=== PATIENT | male | born 1980 | race Caucasian/White ===

== ENCOUNTER 2016-10-23 11:18 | Emergency (ER) | payer MEDICAID, OTHER ==
--- NOTE | 2016-10-23 13:25 | REP ---
Left forearm: Two views. History: Swelling of the distal radius. Findings: AP and lateral views of the left forearm show normal bones and joints. No fracture or subluxation is seen. There is some soft tissue swelling in the distal forearm. Impression: No fracture or other acute abnormality. Unreviewed
--- NOTE | 2016-10-23 13:54 | EDDOCDS ---
Physician Documentation [facility] Name: Rudi Carroll Age: 36 yrs Sex: Male : 1980 Arrival Date: 10/23/2016 Time: 11:18 Bed TR8 Private MD: Sarbjit Araiza Disposition: 10/23/16 13:36 Discharged to Home/Self Care. Impression: Strain of other flexor muscle, fascia and tendon at forearm level, left arm. - Condition is Stable. - Discharge Instructions: Elastic Bandage and RICE, Muscle Strain. - Prescriptions for Naprosyn 500 mg Oral Tablet - take 1 tablet by ORAL route 2 times per day take with food; 30 tablet. - Medication Reconciliation, Local Pharmacy Hours form. - Follow up: Sarbjit Araiza DO; When: Call to arrange an appointment; Reason: Recheck today's complaints. - Problem is new. - Symptoms are unchanged. Historical: - Allergies: Bee stings; - Home Meds: 1. none - PMHx: none; - PSHx: Left great toe surgery; - Social history: Smoking status: Patient uses tobacco products, current every day smoker. No barriers to communication noted, The patient speaks fluent Beninese. - Family history: No immediate family members are acutely ill. - : The pt / caregiver states he / she is not on anticoagulants. Home medication list is obtained from the patient. - Exposure Risk Screening:: None identified. Vital Signs: 10/23 11:20 BP 153 / 82; Pulse 72; Resp 18; Temp 97.2(O); Pulse Ox 99% on R/A; Weight 65.77 kg / ct3 145 lbs (R); Height 5 ft. 10 in. (177.80 cm) (R); Pain 8/10; 13:38 BP 125 / 68; Pulse 58; Resp 18; Temp 99.2(TE); Pulse Ox 99% on R/A; Pain 0/10; mdr 11:20 Body Mass Index 20.81 (65.77 kg, 177.80 cm) ct3 MDM: 12:33 Financial registration complete. lg 12:39 Forearm (radius/ulna) Ordered. EDMS 13:30 Saurav Wrap ordered. ar2 Signatures: Dispatcher [employer] Deejay Cole RN RN Cecily Mensah, Reg Reg lg Armin Roblero PA-C PA-C ar2 Inder Sorto,RN RN mb9 MTDD
--- NOTE | 2016-10-23 13:54 | EDDOCDS ---
Nurse's Notes [facility] Name: Rudi Carroll Age: 36 yrs Sex: Male : 1980 Arrival Date: 10/23/2016 Time: 11:18 Bed TR8 Private MD: Sarbjit Araiza Diagnosis: Strain of other flexor muscle, fascia and tendon at forearm level, left arm Presentation: 10/23 11:31 Presenting complaint: Patient states: Left wrist pain and swelling since ''throwing dwg hay'' one week ago. Adult Sepsis Screening: The patient does not have new or worsening altered mentation. Patient's respiratory rate is less than 22. Systolic blood pressure is greater than 100. Patient has a qSOFA score of 0- Negative Sepsis Screen. Suicide/Homicide risk assessment- the patient denies having any suicidal and/or homicidal ideations and does not present with any other emotional, behavioral or mental health complaints. Status: Patient is not a building service worker or dependent. Transition of care: patient was not received from another setting of care. 11:31 Acuity: STEPAN Level 5 dwg 11:31 Method Of Arrival: Walkin/Carried/Asstd dwg Triage Assessment: 11:33 General: Appears in no apparent distress. Pain: Pain currently is 3 out of 10 on a pain dwg scale. Pt Declines HIV testing. Historical: - Allergies: Bee stings; - Home Meds: 1. none - PMHx: none; - PSHx: Left great toe surgery; - Social history: Smoking status: Patient uses tobacco products, current every day smoker. No barriers to communication noted, The patient speaks fluent Chinese. - Family history: No immediate family members are acutely ill. - : The pt / caregiver states he / she is not on anticoagulants. Home medication list is obtained from the patient. - Exposure Risk Screening:: None identified. Screenin:50 Screening information is obtained from the patient. Fall risk: No risks identified. mb9 Assistance ADL's: requires no assistance with activities of daily living. Abuse/DV Screen: The patient / caregiver reports he/she is: not in a situation that causes fear, pain or injury. Nutritional screening: No deficits noted. Advance Directives: There is no active DNR order. home support is adequate. Assessment: 13:50 General: Appears in no apparent distress, Behavior is appropriate for age, cooperative. mb9 Respiratory: Airway is patent Respiratory effort is even, unlabored. Musculoskeletal: Circulation, motion, and sensation intact. Vital Signs: 11:20 BP 153 / 82; Pulse 72; Resp 18; Temp 97.2(O); Pulse Ox 99% on R/A; Weight 65.77 kg (R); ct3 Height 5 ft. 10 in. (177.80 cm) (R); Pain 8/10; 13:38 BP 125 / 68; Pulse 58; Resp 18; Temp 99.2(TE); Pulse Ox 99% on R/A; Pain 0/10; mdr 11:20 Body Mass Index 20.81 (65.77 kg, 177.80 cm) ct3 Vitals: 11:20 Log In Time: October 23, 2016 at 11:18. ct3 ED Course: 11:19 Patient visited by Cindy Porras PCA. ct3 11:19 Sarbjit Araiza DO is Private Physician. ct3 11:19 Patient moved to Waiting ct3 11:21 Patient moved to Pre RCE ct3 11:32 Triage Initiated dwg 12:14 Patient moved to Triage 3 srm 12:24 Armin Roblero PA-C is PHCP. ar2 12:24 Haroon Quezada MD is Attending Physician. ar2 12:24 Patient visited by Armin Roblero PA-C. ar2 12:45 Patient moved to TR1 mb9 13:32 Patient moved to PR1 / 25 mb9 13:35 Sarbjit Araiza DO is Referral Physician. ar2 13:42 Patient visited by Ethan Reynaga PCA. mdr 13:50 Patient moved to TR8 mb9 13:50 The patient / caregiver is instructed regarding the plan of care and ED course. mb9 13:50 No IV's were initiated during this patient's visit. No procedures done that require mb9 assistance. Order Results: There are currently no results for this order. Outcome: 13:36 Discharge ordered by Provider. ar2 13:50 Discharge Assessment: Patient awake, alert and oriented x 3. No cognitive and/or mb9 functional deficits noted. Patient verbalized understanding of disposition instructions. patient administered narcotics - no. The following High Risk Discharge criteria are identified: None. Discharged to home ambulatory. Condition: good Condition: stable Condition: improved. Discharge instructions given to patient, Instructed on discharge instructions, follow up and referral plans. medication usage, Demonstrated understanding of instructions, medications, Pt was receptive of discharge instructions/ teaching. Prescriptions given X 1. No special radiology studies were completed. Property :Personal belongings accompany Pt. 13:54 Patient left the ED. mb9 Signatures: Deejay Vega, RN Cindi Reyes RN RN srm Robertshaw, Aaron PA-Chacha PA-Chacha ar2 Cindy Porras, SIMULATION ENGINEER SIMULATION ENGINEER ct3 Inder SortoRN RN mb9 Ethan Reynaga, SIMULATION ENGINEER SIMULATION ENGINEER mdr MTDD
--- NOTE | 2016-10-25 14:54 | EDDOCDS ---
Nurse's Notes [facility] Name: Rudi Carroll Age: 36 yrs Sex: Male : 1980 Arrival Date: 10/23/2016 Time: 11:18 Bed TR8 Private MD: Sarbjit Araiza Diagnosis: Strain of other flexor muscle, fascia and tendon at forearm level, left arm Presentation: 10/23 11:31 Presenting complaint: Patient states: Left wrist pain and swelling since ''throwing dwg hay'' one week ago. Adult Sepsis Screening: The patient does not have new or worsening altered mentation. Patient's respiratory rate is less than 22. Systolic blood pressure is greater than 100. Patient has a qSOFA score of 0- Negative Sepsis Screen. Suicide/Homicide risk assessment- the patient denies having any suicidal and/or homicidal ideations and does not present with any other emotional, behavioral or mental health complaints. Status: Patient is not a service worker helper or dependent. Transition of care: patient was not received from another setting of care. 11:31 Acuity: STEPAN Level 5 dwg 11:31 Method Of Arrival: Walkin/Carried/Asstd dwg Triage Assessment: 11:33 General: Appears in no apparent distress. Pain: Pain currently is 3 out of 10 on a pain dwg scale. Pt Declines HIV testing. Historical: - Allergies: Bee stings; - Home Meds: 1. none - PMHx: none; - PSHx: Left great toe surgery; - Social history: Smoking status: Patient uses tobacco products, current every day smoker. No barriers to communication noted, The patient speaks fluent Danish. - Family history: No immediate family members are acutely ill. - : The pt / caregiver states he / she is not on anticoagulants. Home medication list is obtained from the patient. - Exposure Risk Screening:: None identified. Screenin:50 Screening information is obtained from the patient. Fall risk: No risks identified. mb9 Assistance ADL's: requires no assistance with activities of daily living. Abuse/DV Screen: The patient / caregiver reports he/she is: not in a situation that causes fear, pain or injury. Nutritional screening: No deficits noted. Advance Directives: There is no active DNR order. home support is adequate. Assessment: 13:50 General: Appears in no apparent distress, Behavior is appropriate for age, cooperative. mb9 Respiratory: Airway is patent Respiratory effort is even, unlabored. Musculoskeletal: Circulation, motion, and sensation intact. Vital Signs: 11:20 BP 153 / 82; Pulse 72; Resp 18; Temp 97.2(O); Pulse Ox 99% on R/A; Weight 65.77 kg (R); ct3 Height 5 ft. 10 in. (177.80 cm) (R); Pain 8/10; 13:38 BP 125 / 68; Pulse 58; Resp 18; Temp 99.2(TE); Pulse Ox 99% on R/A; Pain 0/10; mdr 11:20 Body Mass Index 20.81 (65.77 kg, 177.80 cm) ct3 Vitals: 11:20 Log In Time: October 23, 2016 at 11:18. ct3 ED Course: 11:19 Patient visited by Cindy Porras PCA. ct3 11:19 Sarbjit Araiza DO is Private Physician. ct3 11:19 Patient moved to Waiting ct3 11:21 Patient moved to Pre RCE ct3 11:32 Triage Initiated dwg 12:14 Patient moved to Triage 3 srm 12:24 Armin Roblero PA-C is PHCP. ar2 12:24 Haroon Quezada MD is Attending Physician. ar2 12:24 Patient visited by Armin Roblero PA-C. ar2 12:45 Patient moved to TR1 mb9 13:32 Patient moved to PR1 / 25 mb9 13:35 Sarbjit Araiza DO is Referral Physician. ar2 13:42 Patient visited by Ethan Reynaga PCA. mdr 13:50 Patient moved to TR8 mb9 13:50 The patient / caregiver is instructed regarding the plan of care and ED course. mb9 13:50 No IV's were initiated during this patient's visit. No procedures done that require mb9 assistance. 14:04 Forearm (radius/ulna) Returned. EDMS 14:51 Patient name changed from Rudi\S\W\S\Carroll\S\ to Rudi\S\Jyaden\S\Carroll. EDMS 10/24 11:33 T-Sheet-- Draft Copy was scanned into [employer] and attached to record. gb Order Results: Radiology Order: Forearm (radius/ulna) Test: Forearm (radius/ulna) REASON FOR EXAMINATION: trauma, swelling distal radial aspect; Left forearm: Two views.; ; History: Swelling of the distal radius.; ; Findings: AP and lateral views of the left forearm show normal bones and joints.; No fracture or subluxation is seen. There is some soft tissue swelling in the; distal forearm.; ; Impression:; ; No fracture or other acute abnormality.; ; ; ; ; Unreviewed; Outcome: 10/23 13:36 Discharge ordered by Provider. ar2 13:50 Discharge Assessment: Patient awake, alert and oriented x 3. No cognitive and/or mb9 functional deficits noted. Patient verbalized understanding of disposition instructions. patient administered narcotics - no. The following High Risk Discharge criteria are identified: None. Discharged to home ambulatory. Condition: good Condition: stable Condition: improved. Discharge instructions given to patient, Instructed on discharge instructions, follow up and referral plans. medication usage, Demonstrated understanding of instructions, medications, Pt was receptive of discharge instructions/ teaching. Prescriptions given X 1. No special radiology studies were completed. Property :Personal belongings accompany Pt. 13:54 Patient left the ED. mb9 Signatures: Dispatcher [employer] EDMS Deejay Vega RN RN Cindi Romero RN RN [facility] Rea Mcdonald, Víctor Reg Armin Wu PA-C PA-C ar2 Cindy Porras, LINING VAMPER LINING VAMPER ct3 Inder SortoRN RN mb9 Ethan Reynaga, LINING VAMPER LINING VAMPER mdr Chart Complete MTDD
--- NOTE | 2016-10-25 14:54 | EDDOCDS ---
Physician Documentation [facility] Name: Rudi Carroll Age: 36 yrs Sex: Male : 1980 Arrival Date: 10/23/2016 Time: 11:18 Bed TR8 Private MD: Sarbjit Araiza Disposition: 10/23/16 13:36 Discharged to Home/Self Care. Impression: Strain of other flexor muscle, fascia and tendon at forearm level, left arm. - Condition is Stable. - Discharge Instructions: Elastic Bandage and RICE, Muscle Strain. - Prescriptions for Naprosyn 500 mg Oral Tablet - take 1 tablet by ORAL route 2 times per day take with food; 30 tablet. - Medication Reconciliation, Local Pharmacy Hours form. - Follow up: Sarbjit Araiza DO; When: Call to arrange an appointment; Reason: Recheck today's complaints. - Problem is new. - Symptoms are unchanged. Historical: - Allergies: Bee stings; - Home Meds: 1. none - PMHx: none; - PSHx: Left great toe surgery; - Social history: Smoking status: Patient uses tobacco products, current every day smoker. No barriers to communication noted, The patient speaks fluent [place] Islander. - Family history: No immediate family members are acutely ill. - : The pt / caregiver states he / she is not on anticoagulants. Home medication list is obtained from the patient. - Exposure Risk Screening:: None identified. Vital Signs: 10/23 11:20 BP 153 / 82; Pulse 72; Resp 18; Temp 97.2(O); Pulse Ox 99% on R/A; Weight 65.77 kg / ct3 145 lbs (R); Height 5 ft. 10 in. (177.80 cm) (R); Pain 8/10; 13:38 BP 125 / 68; Pulse 58; Resp 18; Temp 99.2(TE); Pulse Ox 99% on R/A; Pain 0/10; mdr 11:20 Body Mass Index 20.81 (65.77 kg, 177.80 cm) ct3 MDM: 12:33 Financial registration complete. lg 12:39 Forearm (radius/ulna) Ordered. EDMS 13:30 Saurav Wrap ordered. ar2 10/24 11:33 T-Sheet-- Draft Copy was scanned into [employer] and attached to record. gb Signatures: Dispatcher [employer] Deejay Cole, RN RN dwg Rea Mcdonald, Reg Reg gb Cecily Cortez, Reg Reg lg Armin Roblero, ELLA JARAMILLO ar2 Inder Sorto,RN RN mb9 The chart was reviewed and I authenticate all verbal orders and agree with the evaluation and treatment provided.Attachments: 11:33 T-Sheet-- Draft Copy gb Chart Complete MTDD
--- NOTE | 2016-10-25 14:54 | EDDOCDS ---
Physician Documentation [facility] Name: Rudi Carroll Age: 36 yrs Sex: Male : 1980 Arrival Date: 10/23/2016 Time: 11:18 Bed TR8 Private MD: Sarbjit Araiza Disposition: 10/23/16 13:36 Discharged to Home/Self Care. Impression: Strain of other flexor muscle, fascia and tendon at forearm level, left arm. - Condition is Stable. - Discharge Instructions: Elastic Bandage and RICE, Muscle Strain. - Prescriptions for Naprosyn 500 mg Oral Tablet - take 1 tablet by ORAL route 2 times per day take with food; 30 tablet. - Medication Reconciliation, Local Pharmacy Hours form. - Follow up: Sarbjit Araiza DO; When: Call to arrange an appointment; Reason: Recheck today's complaints. - Problem is new. - Symptoms are unchanged. Historical: - Allergies: Bee stings; - Home Meds: 1. none - PMHx: none; - PSHx: Left great toe surgery; - Social history: Smoking status: Patient uses tobacco products, current every day smoker. No barriers to communication noted, The patient speaks fluent Kyrgyz. - Family history: No immediate family members are acutely ill. - : The pt / caregiver states he / she is not on anticoagulants. Home medication list is obtained from the patient. - Exposure Risk Screening:: None identified. Vital Signs: 10/23 11:20 BP 153 / 82; Pulse 72; Resp 18; Temp 97.2(O); Pulse Ox 99% on R/A; Weight 65.77 kg / ct3 145 lbs (R); Height 5 ft. 10 in. (177.80 cm) (R); Pain 8/10; 13:38 BP 125 / 68; Pulse 58; Resp 18; Temp 99.2(TE); Pulse Ox 99% on R/A; Pain 0/10; mdr 11:20 Body Mass Index 20.81 (65.77 kg, 177.80 cm) ct3 MDM: 12:33 Financial registration complete. lg 12:39 Forearm (radius/ulna) Ordered. EDMS 13:30 Saurav Wrap ordered. ar2 10/24 11:33 T-Sheet-- Draft Copy was scanned into [employer] and attached to record. gb Signatures: Dispatcher [employer] Deejay Cole, RN RN dwg Rea Mcdonald, Reg Reg gb Cecily Cortez, Reg Reg lg Armin Roblero, ELLA JARAMILLO ar2 Inder Sorto,RN RN mb9 The chart was reviewed and I authenticate all verbal orders and agree with the evaluation and treatment provided.Attachments: 11:33 T-Sheet-- Draft Copy gb Chart Complete MTDD
--- NOTE | 2016-10-26 12:13 | EDDOCDS ---
Nurse's Notes [facility] Name: Rudi Carroll Age: 36 yrs Sex: Male : 1980 Arrival Date: 10/23/2016 Time: 11:18 Bed TR8 Private MD: Sarbjit Araiza Diagnosis: Strain of other flexor muscle, fascia and tendon at forearm level, left arm Presentation: 10/23 11:31 Presenting complaint: Patient states: Left wrist pain and swelling since ''throwing dwg hay'' one week ago. Adult Sepsis Screening: The patient does not have new or worsening altered mentation. Patient's respiratory rate is less than 22. Systolic blood pressure is greater than 100. Patient has a qSOFA score of 0- Negative Sepsis Screen. Suicide/Homicide risk assessment- the patient denies having any suicidal and/or homicidal ideations and does not present with any other emotional, behavioral or mental health complaints. Status: Patient is not a director construction services or dependent. Transition of care: patient was not received from another setting of care. 11:31 Acuity: STEPAN Level 5 dwg 11:31 Method Of Arrival: Walkin/Carried/Asstd dwg Triage Assessment: 11:33 General: Appears in no apparent distress. Pain: Pain currently is 3 out of 10 on a pain dwg scale. Pt Declines HIV testing. Historical: - Allergies: Bee stings; - Home Meds: 1. none - PMHx: none; - PSHx: Left great toe surgery; - Social history: Smoking status: Patient uses tobacco products, current every day smoker. No barriers to communication noted, The patient speaks fluent Sami. - Family history: No immediate family members are acutely ill. - : The pt / caregiver states he / she is not on anticoagulants. Home medication list is obtained from the patient. - Exposure Risk Screening:: None identified. Screenin:50 Screening information is obtained from the patient. Fall risk: No risks identified. mb9 Assistance ADL's: requires no assistance with activities of daily living. Abuse/DV Screen: The patient / caregiver reports he/she is: not in a situation that causes fear, pain or injury. Nutritional screening: No deficits noted. Advance Directives: There is no active DNR order. home support is adequate. Assessment: 13:50 General: Appears in no apparent distress, Behavior is appropriate for age, cooperative. mb9 Respiratory: Airway is patent Respiratory effort is even, unlabored. Musculoskeletal: Circulation, motion, and sensation intact. Vital Signs: 11:20 BP 153 / 82; Pulse 72; Resp 18; Temp 97.2(O); Pulse Ox 99% on R/A; Weight 65.77 kg (R); ct3 Height 5 ft. 10 in. (177.80 cm) (R); Pain 8/10; 13:38 BP 125 / 68; Pulse 58; Resp 18; Temp 99.2(TE); Pulse Ox 99% on R/A; Pain 0/10; mdr 11:20 Body Mass Index 20.81 (65.77 kg, 177.80 cm) ct3 Vitals: 11:20 Log In Time: October 23, 2016 at 11:18. ct3 ED Course: 11:19 Patient visited by Cindy Porras PCA. ct3 11:19 Sarbjit Araiza DO is Private Physician. ct3 11:19 Patient moved to Waiting ct3 11:21 Patient moved to Pre RCE ct3 11:32 Triage Initiated dwg 12:14 Patient moved to Triage 3 srm 12:24 Armin Roblero PA-C is PHCP. ar2 12:24 Haroon Quezada MD is Attending Physician. ar2 12:24 Patient visited by Armin Roblero PA-C. ar2 12:45 Patient moved to TR1 mb9 13:32 Patient moved to PR1 / 25 mb9 13:35 Sarbjit Araiza DO is Referral Physician. ar2 13:42 Patient visited by Ethan Reynaga PCA. mdr 13:50 Patient moved to TR8 mb9 13:50 The patient / caregiver is instructed regarding the plan of care and ED course. mb9 13:50 No IV's were initiated during this patient's visit. No procedures done that require mb9 assistance. 14:04 Forearm (radius/ulna) Returned. EDMS 14:51 Patient name changed from Rudi\S\W\S\Carroll\S\ to Rudi\S\Jayden\S\Carroll. EDMS 10/24 11:33 T-Sheet-- Draft Copy was scanned into [employer] and attached to record. gb Order Results: Radiology Order: Forearm (radius/ulna) Test: Forearm (radius/ulna) REASON FOR EXAMINATION: trauma, swelling distal radial aspect; Left forearm: Two views.; ; History: Swelling of the distal radius.; ; Findings: AP and lateral views of the left forearm show normal bones and joints.; No fracture or subluxation is seen. There is some soft tissue swelling in the; distal forearm.; ; Impression:; ; No fracture or other acute abnormality.; ; ; ; ; Unreviewed; Outcome: 10/23 13:36 Discharge ordered by Provider. ar2 13:50 Discharge Assessment: Patient awake, alert and oriented x 3. No cognitive and/or mb9 functional deficits noted. Patient verbalized understanding of disposition instructions. patient administered narcotics - no. The following High Risk Discharge criteria are identified: None. Discharged to home ambulatory. Condition: good Condition: stable Condition: improved. Discharge instructions given to patient, Instructed on discharge instructions, follow up and referral plans. medication usage, Demonstrated understanding of instructions, medications, Pt was receptive of discharge instructions/ teaching. Prescriptions given X 1. No special radiology studies were completed. Property :Personal belongings accompany Pt. 13:54 Patient left the ED. mb9 Signatures: Dispatcher [employer] EDMS Deejay Vega RN RN iCndi Romero RN RN [facility] Rea Mcdonald, Víctor Reg Armin Wu PA-C PA-C ar2 Cindy Porras, UNDERGROUND ROOF BOLTER UNDERGROUND ROOF BOLTER ct3 Inder SortoRN RN mb9 Ethan Reynaga, UNDERGROUND ROOF BOLTER UNDERGROUND ROOF BOLTER mdr Chart Complete MTDD
--- NOTE | 2016-10-26 12:13 | EDDOCDS ---
Physician Documentation [facility] Name: Rudi Carroll Age: 36 yrs Sex: Male : 1980 Arrival Date: 10/23/2016 Time: 11:18 Bed TR8 Private MD: Sarbjit Araiza Disposition: 10/23/16 13:36 Discharged to Home/Self Care. Impression: Strain of other flexor muscle, fascia and tendon at forearm level, left arm. - Condition is Stable. - Discharge Instructions: Elastic Bandage and RICE, Muscle Strain. - Prescriptions for Naprosyn 500 mg Oral Tablet - take 1 tablet by ORAL route 2 times per day take with food; 30 tablet. - Medication Reconciliation, Local Pharmacy Hours form. - Follow up: Sarbjit Araiza DO; When: Call to arrange an appointment; Reason: Recheck today's complaints. - Problem is new. - Symptoms are unchanged. Historical: - Allergies: Bee stings; - Home Meds: 1. none - PMHx: none; - PSHx: Left great toe surgery; - Social history: Smoking status: Patient uses tobacco products, current every day smoker. No barriers to communication noted, The patient speaks fluent Swiss. - Family history: No immediate family members are acutely ill. - : The pt / caregiver states he / she is not on anticoagulants. Home medication list is obtained from the patient. - Exposure Risk Screening:: None identified. Vital Signs: 10/23 11:20 BP 153 / 82; Pulse 72; Resp 18; Temp 97.2(O); Pulse Ox 99% on R/A; Weight 65.77 kg / ct3 145 lbs (R); Height 5 ft. 10 in. (177.80 cm) (R); Pain 8/10; 13:38 BP 125 / 68; Pulse 58; Resp 18; Temp 99.2(TE); Pulse Ox 99% on R/A; Pain 0/10; mdr 11:20 Body Mass Index 20.81 (65.77 kg, 177.80 cm) ct3 MDM: 12:33 Financial registration complete. lg 12:39 Forearm (radius/ulna) Ordered. EDMS 13:30 Saurav Wrap ordered. ar2 10/24 11:33 T-Sheet-- Draft Copy was scanned into [employer] and attached to record. gb Signatures: Dispatcher [employer] Deejay Cole, RN RN dwg Rea Mcdonald, Reg Reg gb Cecily Cortez, Reg Reg lg Armin Roblero, ELLA JARAMILLO ar2 Inder Sorto,RN RN mb9 The chart was reviewed and I authenticate all verbal orders and agree with the evaluation and treatment provided.Attachments: 11:33 T-Sheet-- Draft Copy gb Chart Complete MTDD
--- NOTE | 2016-10-26 12:13 | EDDOCDS ---
Physician Documentation [facility] Name: Rudi Carroll Age: 36 yrs Sex: Male : 1980 Arrival Date: 10/23/2016 Time: 11:18 Bed TR8 Private MD: Sarbjit Araiza Disposition: 10/23/16 13:36 Discharged to Home/Self Care. Impression: Strain of other flexor muscle, fascia and tendon at forearm level, left arm. - Condition is Stable. - Discharge Instructions: Elastic Bandage and RICE, Muscle Strain. - Prescriptions for Naprosyn 500 mg Oral Tablet - take 1 tablet by ORAL route 2 times per day take with food; 30 tablet. - Medication Reconciliation, Local Pharmacy Hours form. - Follow up: Sarbjit Araiza DO; When: Call to arrange an appointment; Reason: Recheck today's complaints. - Problem is new. - Symptoms are unchanged. Historical: - Allergies: Bee stings; - Home Meds: 1. none - PMHx: none; - PSHx: Left great toe surgery; - Social history: Smoking status: Patient uses tobacco products, current every day smoker. No barriers to communication noted, The patient speaks fluent [place]. - Family history: No immediate family members are acutely ill. - : The pt / caregiver states he / she is not on anticoagulants. Home medication list is obtained from the patient. - Exposure Risk Screening:: None identified. Vital Signs: 10/23 11:20 BP 153 / 82; Pulse 72; Resp 18; Temp 97.2(O); Pulse Ox 99% on R/A; Weight 65.77 kg / ct3 145 lbs (R); Height 5 ft. 10 in. (177.80 cm) (R); Pain 8/10; 13:38 BP 125 / 68; Pulse 58; Resp 18; Temp 99.2(TE); Pulse Ox 99% on R/A; Pain 0/10; mdr 11:20 Body Mass Index 20.81 (65.77 kg, 177.80 cm) ct3 MDM: 12:33 Financial registration complete. lg 12:39 Forearm (radius/ulna) Ordered. EDMS 13:30 Saurav Wrap ordered. ar2 10/24 11:33 T-Sheet-- Draft Copy was scanned into [employer] and attached to record. gb Signatures: Dispatcher [employer] Deejay Cole, RN RN dwg Rea Mcdonald, Reg Reg gb Cecily Cortez, Reg Reg lg Armin Roblero, ELLA JARAMILLO ar2 Inder Sorto,RN RN mb9 The chart was reviewed and I authenticate all verbal orders and agree with the evaluation and treatment provided.Attachments: 11:33 T-Sheet-- Draft Copy gb Chart Complete MTDD
--- NOTE | 2016-11-06 14:36 | REP ---
Left forearm: Two views. History: Swelling of the distal radius. Findings: AP and lateral views of the left forearm show normal bones and joints. No fracture or subluxation is seen. There is some soft tissue swelling in the distal forearm. Impression: No fracture or other acute abnormality. Signed by Jayesh Peter MD 10/23/2016 02:34 P
== END 2016-10-23 13:54 | disposition home or self-care (01) ==
LOC: M ED 11:18
DX: S56.512A Strain of other extensor muscle, fascia and tendon at forearm level, left arm, initial encounter (principal); X50.9XXA Other and unspecified overexertion or strenuous movements or postures, initial encounter; Y92.89 Other specified places as the place of occurrence of the external cause; Y93.89 Activity, other specified; Y99.8 Other external cause status; Z91.030 Bee allergy status; F17.200 Nicotine dependence, unspecified, uncomplicated

== ENCOUNTER → 2018-02-21 | Outpatient (CLI) | payer OTHER | LOC: M CLY 09:04 | DX: M54.30 Sciatica, unspecified side (principal) | CPT/HCPCS: 72110 ==

== ENCOUNTER → 2018-02-21 | Outpatient (REF) | payer OTHER ==
[2018-02-21 11:51] LABS: MEAN CORPUSCULAR HEMOGLOBIN 31.5 pg (27.0-33.0); MEAN CORPUSCULAR HGB CONC 34.1 g/dl (32.0-36.5); MEAN CORPUSCULAR VOLUME 92.1 fl (80.0-96.0); PLATELET COUNT, AUTOMATED 343 10^3/uL (150-450); RED BLOOD COUNT 4.45 10^6/uL (4.30-6.10); RED CELL DISTRIBUTION WIDTH 12.3 % (11.5-14.5); WHITE BLOOD COUNT 7.8 10^3/uL (4.0-10.0)
[2018-02-21 12:00] LABS: ALBUMIN 4.3 GM/DL (3.2-5.2); ALBUMIN/GLOBULIN RATIO 1.43 (1.00-1.93); ALKALINE PHOSPHATASE 56 U/L (45-117); ALT/SGPT 19 U/L (12-78); ANION GAP 3 MEQ/L (8-16); AST/SGOT 20 U/L (7-37); BILIRUBIN,TOTAL 0.4 MG/DL (0.2-1.0); BLOOD UREA NITROGEN 15 MG/DL (7-18); CARBON DIOXIDE LEVEL 32 MEQ/L (21-32); CHLORIDE LEVEL 106 MEQ/L (98-107); CHOLESTEROL LEVEL 212 MG/DL (<200); CREATININE FOR GFR 1.06 MG/DL (0.70-1.30); GLOMERULAR FILTRATION RATE > 60.0 (>60); GLUCOSE, FASTING 78 MG/DL (70-100); HDL CHOLESTEROL 40 MG/DL (>40); LDL CHOLESTEROL 159.2 MG/DL (<100); NON-HDL-C 172 MG/DL; POTASSIUM SERUM 4.1 MEQ/L (3.5-5.1); SODIUM LEVEL 141 MEQ/L (136-145); TOTAL PROTEIN 7.3 GM/DL (6.4-8.2); TRIGLYCERIDES LEVEL 64 MG/DL (<150)
== END ==
LOC: M SFHCCLAY 08:41
DX: Z13.6 Encounter for screening for cardiovascular disorders (principal); M54.30 Sciatica, unspecified side
CPT/HCPCS: 80053

== ENCOUNTER → 2020-02-17 | Outpatient (REF) | payer OTHER ==
[2020-02-17 11:36] LABS: HEMATOCRIT 41.4 % (42.0-52.0); HEMOGLOBIN 14.1 g/dl (13.5-17.5); MEAN CORPUSCULAR HEMOGLOBIN 31.7 pg (27.0-33.0); MEAN CORPUSCULAR HGB CONC 34.1 g/dl (32.0-36.5); PLATELET COUNT, AUTOMATED 329 10^3/uL (150-450); RED BLOOD COUNT 4.45 10^6/uL (4.30-6.10)
[2020-02-17 12:34] LABS: ALBUMIN 4.4 GM/DL (3.2-5.2); ALT/SGPT 27 U/L (12-78); BILIRUBIN,TOTAL 0.5 MG/DL (0.2-1.0); BLOOD UREA NITROGEN 14 MG/DL (7-18); CALCIUM LEVEL 9.7 MG/DL (8.5-10.1); CARBON DIOXIDE LEVEL 28 MEQ/L (21-32); CHLORIDE LEVEL 105 MEQ/L (98-107); CHOLESTEROL LEVEL 225 MG/DL (<200); CHOLESTEROL RISK RATIO 5.357 (<5); CREATININE FOR GFR 0.94 MG/DL (0.70-1.30); GLOMERULAR FILTRATION RATE > 60.0 (>60); GLUCOSE, FASTING 73 MG/DL (70-100); HDL CHOLESTEROL 42 MG/DL (>40); LDL CHOLESTEROL 161 MG/DL (<100); NON-HDL-C 183 MG/DL; POTASSIUM SERUM 4.2 MEQ/L (3.5-5.1); SODIUM LEVEL 140 MEQ/L (136-145); TOTAL 25(OH) VITAMIN D 14.9 NG/ML (30.0-100.0); TOTAL PROTEIN 7.3 GM/DL (6.4-8.2); TRIGLYCERIDES LEVEL 109 MG/DL (<150)
== END ==
LOC: M SFHCCLAY 08:44
PROVIDERS: ATTEND Nurse Practitioner Family
DX: E78.5 Hyperlipidemia, unspecified (principal); Z13.21 Encounter for screening for nutritional disorder; Z00.00 Encounter for general adult medical examination without abnormal findings

== ENCOUNTER → 2023-01-03 | Outpatient (REF) | payer OTHER | LOC: M SFHCCLAY 10:05 | PROVIDERS: ATTEND Nurse Practitioner Family | DX: Z53.9 Procedure and treatment not carried out, unspecified reason (principal) ==

== ENCOUNTER → 2024-01-01 | Outpatient (REF) | payer OTHER ==
[2024-01-01 18:32] LABS: ALBUMIN 4.3 G/DL (3.2-5.2); ALKALINE PHOSPHATASE 61 U/L (46-116); ALT/SGPT 22 U/L (7.0-40); AST/SGOT 28 U/L (<34); BILIRUBIN,TOTAL 0.5 MG/DL (0.3-1.2); BLOOD UREA NITROGEN 10 MG/DL (9-23); CALCIUM LEVEL 9.5 MG/DL (8.5-10.1); CARBON DIOXIDE LEVEL 28 MMOL/L (20-31); CHLORIDE LEVEL 106 MMOL/L (98-107); CHOLESTEROL LEVEL 202 MG/DL (<200); CHOLESTEROL RISK RATIO 4.86 (<5); CREATININE FOR GFR 0.92 MG/DL (0.70-1.30); GLOMERULAR FILTRATION RATE > 60.0 (>60); GLUCOSE, FASTING 81 MG/DL (60-100); HDL CHOLESTEROL 41.5 MG/DL (>40); LDL CHOLESTEROL 146.7 MG/DL (<100); NON-HDL-C 160.5 MG/DL; POTASSIUM SERUM 4.4 MMOL/L (3.5-5.1); SODIUM LEVEL 137 MMOL/L (136-145); TOTAL PROTEIN 7.2 G/DL (5.7-8.2); TRIGLYCERIDES LEVEL 69 MG/DL (<150)
== END ==
LOC: M SFHCCLAY 11:32
PROVIDERS: ATTEND Nurse Practitioner Family
DX: Z00.00 Encounter for general adult medical examination without abnormal findings (principal); T63.441A Toxic effect of venom of bees, accidental (unintentional), initial encounter; E78.5 Hyperlipidemia, unspecified